=== PATIENT | male | born 1955 | race Caucasian/White ===

== ENCOUNTER 2025-01-25 09:54 | Emergency (ER) | payer OTHER ==
[~2025-01-25] VITALS: Ht 185.4 cm; Wt 90.7 kg
[2025-01-25] MEDS ORDERED: Acetaminophen 500 MG Tab PO ONE (10:35)
[2025-01-25] MEDS ORDERED: ASPI81CH PO (11:10)
[2025-01-25] MEDS ORDERED: ATOR80 PO (11:11)
[2025-01-25] MEDS ORDERED: BACL10 PO (11:12)
[2025-01-25] MEDS ORDERED: BUSP10 PO (11:13)
[2025-01-25] MEDS ORDERED: Depakote125 MG PO (11:14)
[2025-01-25] MEDS ORDERED: TOPROL XL25 MG PO (11:15)
[2025-01-25] MEDS ORDERED: METF500 PO (11:15)
[2025-01-25] MEDS ORDERED: PROTONIX4010 PO (11:17)
[2025-01-25] MEDS ORDERED: QUET300 PO (11:18)
[2025-01-25] MEDS ORDERED: MIRALAX17 GM PO (11:18)
[2025-01-25] MEDS ORDERED: TAMS.4ER PO (12:56)
[2025-01-25] MEDS ORDERED: RAME8 PO (12:56)
[2025-01-25] MEDS ORDERED: VENL37.5 PO (12:57)
== END 2025-01-25 13:06 | disposition home or self-care (01) ==
LOC: ER 09:54
DX: R04.0 Epistaxis (principal)
CPT/HCPCS: 30903; 99283-25; A9270

== ENCOUNTER → 2025-10-15 | Outpatient (CLI) | payer OTHER ==
[~2025-10-15] MED LIST: ASPI81CH PO; ATOR80 PO; BACL10 PO; BUSP10 PO; Depakote125 MG PO; METF500 PO; MIRALAX17 GM PO; PROTONIX4010 PO; QUET300 PO; RAME8 PO; TAMS.4ER PO; TOPROL XL25 MG PO; VENL37.5 PO
[2025-10-15 11:02] LABS: Source, Urine Clean Catch
[2025-10-15 13:11] LABS: Bilirubin, Urine Neg (Neg); Color, Urine Yellow (P-Yellow); Glucose Qualitative, Urine Neg (Neg); Ketones, Urine 1+ (Neg); Leukocyte Esterase, Urine 1+ (Neg); Protein, Urine 1+ (Neg); Specific Gravity, Urine 1.015 (1.003-1.022); Urobilinogen, Urine 2+ (Normal)
[2025-10-15 13:20] LABS: Red Blood Cells, Urine 0-2 /hpf (0-2); White Blood Cells, Urine 0-2 /hpf (0-5)
== END | disposition home or self-care (01) ==
LOC: LAB SHORT 09:40 → LAB 09:40
PROVIDERS: Physician Assistant
DX: N39.0 Urinary tract infection, site not specified (principal)
CPT/HCPCS: 81001; 87086